=== PATIENT | male | born 1975 | race Two or more races ===

== ENCOUNTER 2018-06-11 09:45 | Emergency (ER) | payer OTHER ==
[2018-06-11 10:08] LABS: AADO2 Venous 40.5 mmHg; MODE ROOM AIR; MetHgb Venous 0.4 %; Site VENOUS LINE; Venous COHb 0.2 %; Venous Fraction OxyHgb 91.7 %; Venous Oxygen Sat 92.3 mmHG (55.0-75.0); Venous Total Hemglobin 16.7 g/dl
[2018-06-11 10:23] LABS: ADD MAN DIFF? NO
[2018-06-11 10:32] LABS: WHITE BLOOD COUNT 5.6 10^3/ul (4.8-10.8)
[2018-06-11 10:32] LABS: BASOPHILS % 0.5 % (0.0-2.0); EOSINOPHILS # 0.1 10^3/ul (0.0-0.5); EOSINOPHILS % 0.9 % (0.0-7.0); HEMATOCRIT 44.8 % (42.0-52.0); HEMOGLOBIN 15.6 g/dl (14.0-18.0); LYMPHOCYTES # 1.2 10^3/ul (0.8-2.9); LYMPHOCYTES % 20.6 % (15.0-51.0); MEAN CORPUSCULAR HEMOGLOBIN 29.6 pg (29.0-33.0); MEAN CORPUSCULAR HGB CONC 34.8 g/dl (32.0-37.0); MEAN PLATELET VOLUME 12.4 fl (7.4-10.4); MONOCYTE # 0.3 10^3/ul (0.3-0.9); MONOCYTES % 5.6 % (0.0-11.0); PLATELET COUNT 165 10^3/UL (140-415); RED BLOOD COUNT 5.27 10^6/ul (4.70-6.10); RED CELL DISTRIBUTION WIDTH 12.4 % (11.5-14.5)
[2018-06-11] MEDS: IBUPROFEN 800 MG TAB PO (10:33)
[2018-06-11] MEDS: SOD CHLORIDE 0.9% 1,000 ML IV (10:33)
[2018-06-11 10:46] LABS: URINE BLOOD (Dip) POC Trace-intact (NEGATIVE); URINE KETONES (Dip) POC 1+ (NEGATIVE); URINE LEUKOCYTE EST (Dip) POC Negative (NEGATIVE); URINE NITRITE (Dip) POC Negative (NEGATIVE); URINE TOTAL PROTEIN POC Negative (NEGATIVE)
[2018-06-11 10:50] LABS: ANION GAP 14 (5-13); BLOOD UREA NITROGEN 13 mg/dl (7-20); CALCIUM 9.6 mg/dl (8.4-10.2); CARBON DIOXIDE 23 mmol/L (21-31); CHLORIDE 100 mmol/L (97-110); CREATININE 0.76 mg/dl (0.61-1.24); Estimated GFR > 60 mL/min (>60); POTASSIUM 4.2 mmol/L (3.5-5.1); SODIUM 137 mmol/L (135-144)
[2018-06-11 10:54] LABS: GLUCOSE 400 mg/dl (70-220)
[2018-06-11 11:00] LABS: TROPONIN-I < 0.012 ng/ml (0.000-0.120)
== END 2018-06-11 11:55 | disposition home or self-care (01) ==
LOC: E/R 09:45
DX: R55 Syncope and collapse (principal); E11.9 Type 2 diabetes mellitus without complications
CPT/HCPCS: 36415; 80048; 81003; 82803; 82962; 84484; 85025; 93005; 99284-25